=== PATIENT | female | born 2000 | race American Indian/Alaskan Native ===

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

== ENCOUNTER 2020-01-19 00:27 | Emergency (ER) | payer BC, OTHER ==
[2020-01-19] MEDS ORDERED: ACETAMINOPHEN 500 MG TAB PO ONE (01:27)
[2020-01-19] MEDS ORDERED: IBUPROFEN 600 MG TAB PO ONE (01:27)
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
[2020-01-19 02:54] VITALS: BP 142/82
== END 2020-01-19 02:54 | disposition home or self-care (01) ==
LOC: ED 00:27
DX: M62.830 Muscle spasm of back (principal); G44.319 Acute post-traumatic headache, not intractable; Z79.899 Other long term (current) drug therapy; V49.49XA Driver injured in collision with other motor vehicles in traffic accident, initial encounter; Y93.89 Activity, other specified; Y92.488 Other paved roadways as the place of occurrence of the external cause; Y99.8 Other external cause status
CPT/HCPCS: 70450; 72128; 99283